=== PATIENT | female | born 1970 | race Caucasian/White ===

== ENCOUNTER 2023-07-07 13:04 | Outpatient (CLI) | payer OTHER, SELFPAY | END 2023-07-07 13:05 | disposition home or self-care (01) | PROVIDERS: PCP Family Medicine; Visit Provider Family Medicine | DX: Z00.00 Encounter for general adult medical examination without abnormal findings (principal); R63.5 Abnormal weight gain; Z13.6 Encounter for screening for cardiovascular disorders; Z13.1 Encounter for screening for diabetes mellitus; Z11.59 Encounter for screening for other viral diseases | CPT/HCPCS: 80053; 80061; 84443; 86803 ==

== ENCOUNTER 2023-09-28 09:32 | Outpatient (CLI) | payer OTHER, SELFPAY ==
--- NOTE | 2023-09-28 10:15 | MM_ITS ---
Patient: JOVANNI ARITA Facility:?[facility] Patient ID:?[id number] Site Patient ID:?[id number]. Site :?[id number] Study:?XRay-Breast Bilateral 3D W/CAD-09/28/2023 10:09:25 AM Ordering Physician:?Leanne Rogers Final Report: BILATERAL SCREENING MAMMOGRAM WITH COMPUTER-AIDED DETECTION AND TOMOSYNTHESIS TECHNIQUE: CC and MLO views were obtained. These mammographic images have been obtained using full-field digital technique. These mammographic images were interpreted with the benefit of computer-aided detection. Breast Tomosynthesis was used in this interpretation. COMPARISON FILM 02/16/15, 03/07/15. FINDINGS: There are scattered areas of fibroglandular density. IMPRESSION: There is no radiographic evidence for malignancy. ASSESSMENT: BI-RADS Category 1: Negative RECOMMENDATION: Routine screening mammogram in 1 year. A lay language report of this examination will be provided to the patient. Santhosh Bobby M.D. Diagnostic Radiologist [email or web address] DSM/sp R& Transcribed: 5:18 p.m. SP/Dictated by: Santhosh Bobby MD @ 09/28/2023 12:30:00 PM Signed by:?Santhosh Bobby MD @09/28/2023 6:52:41 PM (Electronic Signature)
== END 2023-09-28 09:33 | disposition home or self-care (01) ==
LOC: MAMMO 09:33
PROVIDERS: PCP Family Medicine; Visit Provider Family Medicine
DX: Z12.31 Encounter for screening mammogram for malignant neoplasm of breast (principal)
CPT/HCPCS: 77063; 77067

== ENCOUNTER 2024-08-20 09:27 | Outpatient (CLI) | payer OTHER, SELFPAY | END 2024-08-20 09:28 | disposition home or self-care (01) | PROVIDERS: PCP Family Medicine; Visit Provider Family Medicine | DX: Z13.6 Encounter for screening for cardiovascular disorders (principal); Z13.9 Encounter for screening, unspecified | CPT/HCPCS: 80053; 80061 ==